=== PATIENT | female | born 1965 ===

== ENCOUNTER 2018-06-30 11:38 | Emergency (ER) | payer MEDICARE, MEDICAID ==
[2018-06-30 11:45] VITALS: TEMP 98.6
--- NOTE | 2018-06-30 12:26 | C.PDOC ---
History Of Present Illness 53 yo female come in for evaluation of Right foot pain associated with mild swelling gradually developed for past week. Pt reports, pain is diffuse over dorsum and plantar aspect Right foot, localized, worse with ambulation. Pt admits, " pain started after went to gym". Pt denies known direct trauma or injury, fever, chills, deformity, weakness, sensory or vascular deficits to Right leg. Ambulatory with stable gait. Time Seen by Provider: 06/30/18 11:51 Chief Complaint (Nursing): Lower Extremity Problem/Injury History Per: Patient Past Medical History Reviewed: Historical Data, Nursing Documentation, Vital Signs Vital Signs: Last Vital Signs Temp 98.6 F 06/30/18 11:44 Pulse 89 06/30/18 11:44 Resp 48 H 06/30/18 11:44 BP 147/79 06/30/18 11:44 Pulse Ox 98 06/30/18 11:44 Primary Care Provider: FAMILY PROVIDER,NO - Medical History PMH: Asthma, Depression, HTN Family History: States: Unknown Family Hx - Social History Hx Tobacco Use: No Hx Alcohol Use: No Hx Substance Use: No - Immunization History Hx Influenza Vaccination: No (not UTD) Hx Pneumococcal Vaccination: No (not UTD) Review Of Systems Except As Marked, All Systems Reviewed And Found Negative. Constitutional: Negative for: Fever, Chills Musculoskeletal: Positive for: Foot Pain Skin: Negative for: Rash, Lesions, Bruising Neurological: Negative for: Weakness, Numbness Physical Exam - Physical Exam Appears: Well, Non-toxic, No Acute Distress Skin: Normal Color, Warm, No Rash, No Ecchymosis Extremity: Normal ROM (FAROM of Right foot/ankle, no neurovascular deficits), Tenderness (diffuse over dorsal aspect Right foot and plantar aspect adenike foot arch. Mild diffuse edema noted over dorsal asepct Right foot. No erythema, no warmth. no palpable deformity. ), No Pedal Edema, No Calf Tenderness (right), Capillary Refill (less than 2sec to Right foot), No Deformity Pulses: Right Dorsalis Pedis: Normal DTR: Ankle (R): 2+ Neurological/Psych: Oriented x3, Normal Speech ED Course And Treatment O2 Sat by Pulse Oximetry: 98 Pulse Ox Interpretation: Normal - Other Rad Right foot X-Ray: Interpreted by Me, Viewed By Me Interpretation: (+) mild DJD, osteophyrte, no acute fx or dislocation Progress Note: Afebrile, hemodynamicaly stable. non-toxic. Right foot: diffur tenderness and slight edema noted dorsal asepct Right foot. No erythema, no palpable deformity. No calf tenderness, FAROM, no neurovascular deficits. Imaging review and appears without acute abnoramlities. [place] wrap applie dto right foot. Pt advised and ref. to f/u with Podiatry Clinic tomorrow for re- eval. return to Ed if any new changes. Pt is stable for discharge now Disposition Counseled Patient/Family Regarding: Studies Performed, Diagnosis, Need For Followup, Rx Given - Disposition Referrals: Podiatry Clinic [Outside] [facility] [Outside] Disposition: HOME/ ROUTINE Disposition Time: 12:15 Condition: STABLE Additional Instructions: Comfortable shoe for 1 week RICE-rest, ice, compression with salinas wrap , elevation Avoid physical activity, prolong walking for 1 week Follow up with Podiatry Clinic on Sunday from 12 PM-3 PM for re-evaluation. return to ED if any worsening or new changes. Prescriptions: Prednisone [Deltasone] 20 mg PO DAILY #3 tablet traMADol [Ultram] 50 mg PO TID #7 tab Instructions: Foot Sprain (DC) Print Language: BURUNDIAN - Clinical Impression Clinical Impression: Arthralgia of foot
[2018-06-30 12:44] VITALS: BP 138/72; PULSE 72; RESP 18; O2SAT 99
--- NOTE | 2018-06-30 14:12 | RAD ---
Date of service: 06/30/2018 PROCEDURE: Right Foot Radiographs. HISTORY: pain COMPARISON: None. TECHNIQUE: 3 views obtained. FINDINGS: BONES: Normal. No fracture. JOINTS: Normal. SOFT TISSUES: Normal. OTHER FINDINGS: None. IMPRESSION: No evidence of acute fracture or dislocation.
== END 2018-06-30 12:44 | disposition home or self-care (01) ==
LOC: C.ER 11:38
DX: M79.671 Pain in right foot (principal); I10 Essential (primary) hypertension